=== PATIENT | female | born 1955 | race Caucasian/White ===

== ENCOUNTER 2021-11-05 06:50 | Emergency (ER) | payer MEDICARE, MEDICAID ==
[~2021-11-05] VITALS: Ht 160 cm; Wt 110.0 kg
[~2021-11-05 06:50] MED LIST: ALPR-623 PO; BACDS PO; IBUP-1984 PO; METH-603 PO
--- NOTE | 2021-11-05 07:12 | NUR ---
PT HAS POOR CIRCULATION TO BILAT HANDS WITH PURPLISH FINGERS. PT STATES THIS IS BASELINE FOR HER AND NOT RELATED TO REASON FOR VISIT. O2 SAT DONE ON EAR. PT HAS A HEALING WOUND TO LEFT LOWER LEG X 7 MONTHS PT GOING TO WOUND CARE, PT STATES NOT RELATED TO REASON FOR VISIT.
--- NOTE | 2021-11-05 07:30 | NUR ---
PT STATED SHE IS VACCINATED X 2 DOSES LAST TESTED FOR COVID X2 MONTHS AGO
[2021-11-05] MEDS ORDERED: ketorolac trometh. 30mg/ml inj. IM ONE (08:15)
[2021-11-05] MEDS ORDERED: oxymetazoline 15 ML nasal spray NS ONE (08:45)
[2021-11-05 10:32] VITALS: BP 92/55
[2021-11-05] MEDS ORDERED: FLUT16SP2 BOTHNARES (10:39)
== END 2021-11-05 12:28 | disposition home or self-care (01) ==
LOC: ER 06:50
DX: J32.9 Chronic sinusitis, unspecified (principal); Z20.822 Contact with and (suspected) exposure to COVID-19; F17.200 Nicotine dependence, unspecified, uncomplicated; F12.90 Cannabis use, unspecified, uncomplicated; F15.90 Other stimulant use, unspecified, uncomplicated; Z86.14 Personal history of Methicillin resistant Staphylococcus aureus infection; Z88.8 Allergy status to other drugs, medicaments and biological substances; Z79.899 Other long term (current) drug therapy
CPT/HCPCS: 87502; 87503; 87635; 96372; 99283; C9803; J1885

== ENCOUNTER 2021-11-07 23:53 | Emergency (ER) | payer MEDICARE, MEDICAID ==
[~2021-11-07] VITALS: Ht 157.5 cm; Wt 50.0 kg
[~2021-11-07 23:53] MED LIST changes: +FLUT16SP2 BOTHNARES
[2021-11-08 00:27] LABS: BASOPHILS % (AUTO) 0.1 % (0-1); EOSINOPHILS % (AUTO) 0 % (0-6); HEMATOCRIT 37.2 % (35.0-45.0); HEMOGLOBIN 12.7 g/dl (12.0-16.0); LYMPHOCYTES # (AUTO) 1.5 X10'3 (1.1-4.8); LYMPHOCYTES % (AUTO) 9.9 % (21-51); MEAN CORPUSCULAR HEMOGLOBIN 27.5 PG (27.0-31.0); MEAN CORPUSCULAR VOLUME 80.8 FL (78-98); MONOCYTES # (AUTO) 1.9 X10'3 (0-0.9); MONOCYTES % (AUTO) 12.9 % (2-12); NEUTROPHILS # (AUTO) 11.6 X10'3 (1.8-7.7); NEUTROPHILS % (AUTO) 77.1 % (42-75); PLATELET COUNT 372 X10'3 (140-440); RED CELL DISTRIBUTION WIDTH 15.2 % (11.5-14.5)
[2021-11-08 00:49] LABS: ALANINE AMINOTRANSFERASE 19 U/L (12-78); ALBUMIN/GLOBULIN RATIO 0.5 (1.1-1.5); ALKALINE PHOSPHATASE 102 IU/L (46-116); ANION GAP 12 (8-16); ASPARTATE AMINO TRANSFERASE 23 U/L (10-37); BILIRUBIN,TOTAL 0.4 MG/DL (0.1-1.0); BLOOD UREA NITROGEN 21 MG/DL (7-18); BUN/CREATININE RATIO 24.1 (6.6-38.0); CALCIUM 9.1 MG/DL (8.5-10.1); CHLORIDE 94 MMOL/L (99-107); CREATININE 0.87 MG/DL (0.40-0.90); POTASSIUM 3.9 MMOL/L (3.5-5.1); SODIUM 134 MMOL/L (135-145); TOTAL CARBON DIOXIDE 27.7 MMOL/L (24-32); TOTAL PROTEIN 9.1 G/DL (6.4-8.2); eGFR 66 ML/MIN
[2021-11-08 00:51] LABS: GLUCOSE 98 MG/DL (70-104)
[2021-11-08] MEDS ORDERED: LEVO500T90 PO (01:34)
[2021-11-08] MEDS ORDERED: levoFLOXACIN 250mg tablet PO ONE (01:35)
[2021-11-08 02:11] VITALS: BP 142/89
== END 2021-11-08 02:15 | disposition home or self-care (01) ==
LOC: ER 23:54
DX: L03.116 Cellulitis of left lower limb (principal); I83.028 Varicose veins of left lower extremity with ulcer other part of lower leg; L97.829 Non-pressure chronic ulcer of other part of left lower leg with unspecified severity; F41.9 Anxiety disorder, unspecified; F32.A Depression, unspecified; F12.90 Cannabis use, unspecified, uncomplicated; F15.90 Other stimulant use, unspecified, uncomplicated; Z86.14 Personal history of Methicillin resistant Staphylococcus aureus infection; Z98.890 Other specified postprocedural states; Z88.5 Allergy status to narcotic agent; Z79.2 Long term (current) use of antibiotics; Z79.899 Other long term (current) drug therapy
CPT/HCPCS: 36415; 80053; 85025; 93971; 99284

== ENCOUNTER 2022-04-27 17:50 | Emergency (ER) | payer MEDICARE, MEDICAID ==
[~2022-04-27] VITALS: Ht 157.5 cm; Wt 45.5 kg
[2022-04-27 18:23] VITALS: BP 112/78
== END 2022-04-28 02:47 | disposition left against medical advice (07) ==
LOC: ER 17:51
DX: R51.9 Headache, unspecified (principal); Z53.21 Procedure and treatment not carried out due to patient leaving prior to being seen by health care provider

== ENCOUNTER 2023-03-25 02:03 | Emergency (ER) | payer MEDICARE, MEDICAID ==
[~2023-03-25] VITALS: Ht 157.5 cm; Wt 48.8 kg
[2023-03-25] MEDS ORDERED: vancomycin inj 1,000 MG in normal saline 250ml IV soln 250 ML IV ONE (03:15)
[2023-03-25] MEDS ORDERED: piperacillin/tazo 4.5gm/100ml 100 ML IV ONE (03:15)
[2023-03-25] MEDS ORDERED: vancomycin/NS 1 GM ADD-VANTAGE 250 ML IV ONE (03:20)
[2023-03-25] MEDS ORDERED: HYDROcodone/acetaminophen 5mg/325mg tablet PO ONE (03:20)
--- NOTE | 2023-03-25 03:27 | NUR ---
PT TO CT
--- NOTE | 2023-03-25 04:02 | NUR ---
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 us tech on the way.
[2023-03-25] MEDS ORDERED: piperacillin/tazo 3.375gm/50ml 50 ML IV ONE (04:05)
[2023-03-25 04:26] LABS: ALANINE AMINOTRANSFERASE 29 U/L (12-78); ALBUMIN 2.6 G/DL (3.4-5.0); ALBUMIN/GLOBULIN RATIO 0.5 (1.1-1.5); ALKALINE PHOSPHATASE 141 IU/L (46-116); ANION GAP 8 (8-16); ASPARTATE AMINO TRANSFERASE 28 U/L (10-37); BILIRUBIN,TOTAL 0.5 MG/DL (0.1-1.0); BLOOD UREA NITROGEN 19 MG/DL (7-18); BUN/CREATININE RATIO 23.8 (10.0-20.0); CALCIUM 9.2 MG/DL (8.5-10.1); CHLORIDE 95 MMOL/L (99-107); GLUCOSE 104 MG/DL (70-104); POTASSIUM 3.2 MMOL/L (3.5-5.1); SODIUM 133 MMOL/L (135-145); TOTAL CARBON DIOXIDE 29.8 MMOL/L (24-32); TOTAL PROTEIN 7.4 G/DL (6.4-8.2); eCRCL 54 ML/MIN; eGFR 72 ML/MIN
[2023-03-25 04:42] LABS: BASOPHILS % (AUTO) 0.1 % (0-1); EOSINOPHILS % (AUTO) 0.1 % (0-6); HEMATOCRIT 40.9 % (35.0-45.0); HEMOGLOBIN 13.7 g/dl (12.0-16.0); LYMPHOCYTES % (AUTO) 9.1 % (21-51); MEAN CORPUSCULAR HEMOGLOBIN 28.1 PG (27.0-31.0); MEAN CORPUSCULAR HGB CONC 33.6 g/dL (33.0-36.5); MEAN CORPUSCULAR VOLUME 83.8 FL (78-98); MEAN PLATELET VOLUME 7.5 FL (7.4-10.4); MONOCYTES # (AUTO) 2.4 X10'3 (0-0.9); NEUTROPHILS # (AUTO) 17.4 X10'3 (1.8-7.7); NEUTROPHILS % (AUTO) 79.7 % (42-75); PLATELET COUNT 385 X10'3 (140-440); RED BLOOD COUNT 4.88 X10'6 (4.20-5.60); RED CELL DISTRIBUTION WIDTH 14.3 % (11.5-14.5); WHITE BLOOD COUNT 21.9 X10'3 (4.5-11.0)
[2023-03-25] MEDS ORDERED: SULF1TAB49 PO (05:12)
[2023-03-25] MEDS ORDERED: CEPH-585 PO (05:12)
[2023-03-25] MEDS ORDERED: IBUP-1984 PO (05:13)
[2023-03-25 06:03] VITALS: BP 114/75; PULSE 63; RESP 15; TEMP 98.1; O2SAT 100
[2023-03-25 06:17] LABS: PLATELET ESTIMATE NORMAL; TOTAL CELLS COUNTED 100
[2023-03-25 06:19] LABS: ELLIPTOCYTES 1+
== END 2023-03-25 06:06 | disposition home or self-care (01) ==
LOC: ER 02:03
DX: L03.115 Cellulitis of right lower limb (principal)
CPT/HCPCS: 73700; 80053; 85007; 85025; 93971; 96365; 96366; 96368; 99285; J2543; J3370

== ENCOUNTER 2023-04-02 16:52 | Inpatient (IN) | payer MEDICARE, MEDICAID ==
[~2023-04-02] VITALS: Ht 157.5 cm; Wt 53.0 kg
[~2023-04-02 16:52] MED LIST changes: +CEPH-585 PO; +SULF1TAB49 PO
[2023-04-02] MEDS ORDERED: piperacillin/tazo 4.5gm/100ml 100 ML IV STA (18:43)
[2023-04-02] MEDS ORDERED: vancomycin/NS 1 GM ADD-VANTAGE 250 ML IV ONE (18:50)
[2023-04-02 19:11] LABS: BASOPHILS % (AUTO) 0.4 % (0-1); EOSINOPHILS # (AUTO) 0.1 X10'3 (0-0.9); EOSINOPHILS % (AUTO) 0.6 % (0-6); HEMATOCRIT 42.4 % (35.0-45.0); HEMOGLOBIN 14.7 g/dl (12.0-16.0); LYMPHOCYTES # (AUTO) 1.2 X10'3 (1.1-4.8); LYMPHOCYTES % (AUTO) 13.4 % (21-51); MEAN CORPUSCULAR HEMOGLOBIN 29.4 PG (27.0-31.0); MEAN CORPUSCULAR HGB CONC 34.6 g/dL (33.0-36.5); MEAN CORPUSCULAR VOLUME 84.8 FL (78-98); MEAN PLATELET VOLUME 6.2 FL (7.4-10.4); MONOCYTES % (AUTO) 11.5 % (2-12); NEUTROPHILS # (AUTO) 6.4 X10'3 (1.8-7.7); NEUTROPHILS % (AUTO) 74.1 % (42-75); PLATELET COUNT 380 X10'3 (140-440); RED CELL DISTRIBUTION WIDTH 14.9 % (11.5-14.5); WHITE BLOOD COUNT 8.6 X10'3 (4.5-11.0)
[2023-04-02 19:22] LABS: ALANINE AMINOTRANSFERASE 25 U/L (12-78); ALBUMIN 2.8 G/DL (3.4-5.0); ALBUMIN/GLOBULIN RATIO 0.5 (1.1-1.5); ALKALINE PHOSPHATASE 135 IU/L (46-116); ANION GAP 5 (8-16); ASPARTATE AMINO TRANSFERASE 22 U/L (10-37); BILIRUBIN,TOTAL 0.4 MG/DL (0.1-1.0); BLOOD UREA NITROGEN 18 MG/DL (7-18); BUN/CREATININE RATIO 18.6 (10.0-20.0); CALCIUM 9.2 MG/DL (8.5-10.1); CHLORIDE 99 MMOL/L (99-107); CREATININE 0.97 MG/DL (0.40-0.90); GLUCOSE 90 MG/DL (70-104); POTASSIUM 4.3 MMOL/L (3.5-5.1); SODIUM 134 MMOL/L (135-145); TOTAL PROTEIN 8.5 G/DL (6.4-8.2); eCRCL 46 ML/MIN; eGFR 58 ML/MIN
[2023-04-02] MEDS ORDERED: ondansetron 4mg rapidly disintigrating tab PO PRN (20:10)
[2023-04-02] MEDS ORDERED: magnesium hydroxide 30ml (MOM) UD suspension PO PRN (20:10)
[2023-04-02] MEDS ORDERED: diphenhydrAMINE 50 mg/ml inj IV PRN (20:10)
[2023-04-02] MEDS ORDERED: normal saline 1000ml 1,000 ML IV SCH (20:10)
[2023-04-02] MEDS ORDERED: acetaminophen 325mg tablet PO PRN ×2 (20:10)
[2023-04-02] MEDS ORDERED: HYDROcodone/acetaminophen 5mg/325mg tablet PO PRN (20:10)
[2023-04-02] MEDS ORDERED: bisacodyl 10mg suppository rectal RC PRN (20:10)
[2023-04-02] MEDS ORDERED: mag hydrox/Alum hydrox/simeth 30ml oral suspension PO PRN (20:10)
[2023-04-02] MEDS ORDERED: diphenhydrAMINE 25mg capsule PO PRN (20:10)
[2023-04-02] MEDS ORDERED: HYDROcodone/acetaminophen 10/325mg tab PO PRN (20:10)
[2023-04-02] MEDS ORDERED: acetaminophen 650mg rectal suppository RC PRN (20:10)
[2023-04-02] MEDS ORDERED: ondansetron/PF 4mg/2ml inj IV PRN (20:10)
[2023-04-02 20:37] LABS: APTT 32 SECONDS (22-32)
[2023-04-02 20:42] LABS: INR 0.9 INR
[2023-04-02 20:44] LABS: C-REACTIVE PROTEIN 6.15 MG/DL (0.0-0.5); CREATINE KINASE 42 U/L (26-192); PHOSPHORUS 3.6 MG/DL (2.3-4.5); PRO BRAIN NATRIURETIC PEPTIDE 556 PG/ML (0-125); THYROID STIMULATING HORMONE 2.07 ulU/ml (0.34-4.50)
[2023-04-02] MEDS ORDERED: temazepam 15mg capsule PO PRN (21:00)
[2023-04-02] MEDS: morphine 2 MG/ML inj. syringe IV PRN (21:03)
[2023-04-02] MEDS ORDERED: iohexol 300mg/ml 100ml inj. ONE (21:15)
[2023-04-03] MEDS: morphine 2 MG/ML inj. syringe IV PRN (01:24)
[2023-04-03 01:25] LABS: BILIRUBIN,URINE NEGATIVE (Neg); CLARITY,URINE CLEAR (Clear); COLOR,URINE YELLOW (Yellow); GLUCOSE, URINE NEGATIVE (Neg); KETONES,URINE NEGATIVE (Neg); LEUKOCYTE ESTERASE ,URINE NEGATIVE (Neg); NITRITES, URINE NEGATIVE (Neg); OCCULT BLOOD,URINE NEGATIVE (Neg); PROTEIN,URINE NEGATIVE (Neg)
[2023-04-03 01:30] LABS: UA COLLECTION TYPE NON-SPECIFIED
[2023-04-03 02:31] LABS: URINE AMPHETAMINE SCREEN POSITIVE (Neg); URINE BARBITUATE SCREEN NEGATIVE (Neg); URINE BENZODIAZEPINES SCREEN POSITIVE (Neg); URINE CANNABINOID SCREEN NEGATIVE (Neg); URINE COCAINE SCREEN NEGATIVE (Neg); URINE METHADONE SCREEN NEGATIVE (Neg); URINE OPIATE SCREEN POSITIVE (Neg); URINE PHENCYCLIDINE SCREEN NEGATIVE (Neg)
[2023-04-03 03:20] LABS: BASOPHILS % (AUTO) 0.3 % (0-1); EOSINOPHILS # (AUTO) 0.1 X10'3 (0-0.9); EOSINOPHILS % (AUTO) 0.8 % (0-6); HEMATOCRIT 33.7 % (35.0-45.0); HEMOGLOBIN 11.4 g/dl (12.0-16.0); LYMPHOCYTES # (AUTO) 1.5 X10'3 (1.1-4.8); MEAN CORPUSCULAR HEMOGLOBIN 28.8 PG (27.0-31.0); MEAN CORPUSCULAR HGB CONC 33.6 g/dL (33.0-36.5); MEAN CORPUSCULAR VOLUME 85.6 FL (78-98); MEAN PLATELET VOLUME 6.5 FL (7.4-10.4); MONOCYTES % (AUTO) 14.3 % (2-12); NEUTROPHILS # (AUTO) 4.7 X10'3 (1.8-7.7); NEUTROPHILS % (AUTO) 64.6 % (42-75); PLATELET COUNT 341 X10'3 (140-440); RED BLOOD COUNT 3.94 X10'6 (4.20-5.60); WHITE BLOOD COUNT 7.3 X10'3 (4.5-11.0)
[2023-04-03 03:36] LABS: ALANINE AMINOTRANSFERASE 18 U/L (12-78); ALBUMIN/GLOBULIN RATIO 0.5 (1.1-1.5); ALKALINE PHOSPHATASE 90 IU/L (46-116); ANION GAP 7 (8-16); ASPARTATE AMINO TRANSFERASE 25 U/L (10-37); BILIRUBIN,TOTAL 0.5 MG/DL (0.1-1.0); BLOOD UREA NITROGEN 14 MG/DL (7-18); BUN/CREATININE RATIO 15.4 (10.0-20.0); CALCIUM 8.1 MG/DL (8.5-10.1); CHLORIDE 102 MMOL/L (99-107); CREATININE 0.91 MG/DL (0.40-0.90); GLUCOSE 112 MG/DL (70-104); POTASSIUM 4.1 MMOL/L (3.5-5.1); SODIUM 135 MMOL/L (135-145); TOTAL CARBON DIOXIDE 26.4 MMOL/L (24-32); TOTAL PROTEIN 6.1 G/DL (6.4-8.2); eCRCL 49 ML/MIN; eGFR 62 ML/MIN
--- NOTE | 2023-04-03 07:29 | NUR ---
Dr. Mcarthur paged regarding to AMA.
[2023-04-03] MEDS ORDERED: pantoprazole 40mg Tablet.DR PO SCH (07:30)
[2023-04-03] MEDS ORDERED: docusate sod 100mg capsule PO SCH (08:00)
[2023-04-03] MEDS ORDERED: nicotine 21mg patch - 24 hr TD SCH (08:00)
[2023-04-03] MEDS ORDERED: piperacillin/tazo 4.5gm/100ml 100 ML IV SCH (08:00)
[2023-04-03] MEDS ORDERED: heparin, porcine 5000 units/ml vial SQ SCH (08:00)
[2023-04-03 08:04] VITALS: BP 112/73; PULSE 69; RESP 14; TEMP 97.2; O2SAT 95
[2023-04-03] MEDS ORDERED: vancomycin/NS 1 GM ADD-VANTAGE 250 ML IV SCH (20:00)
== END 2023-04-03 10:00 | disposition left against medical advice (07) | DRG 603 ==
LOC: ER 16:53 → UNDOADMOB 20:14 → ED HOLD 20:14
PROVIDERS: ADMIT Family Medicine; ATTEND Internal Medicine
DX: L03.115 Cellulitis of right lower limb (principal); E87.1 Hypo-osmolality and hyponatremia; N17.9 Acute kidney failure, unspecified; E44.1 Mild protein-calorie malnutrition; L30.9 Dermatitis, unspecified; F15.129 Other stimulant abuse with intoxication, unspecified; F11.10 Opioid abuse, uncomplicated; E88.09 Other disorders of plasma-protein metabolism, not elsewhere classified; Z53.29 Procedure and treatment not carried out because of patient's decision for other reasons; N18.9 Chronic kidney disease, unspecified; K59.09 Other constipation; J44.9 Chronic obstructive pulmonary disease, unspecified; Z72.0 Tobacco use; Z88.5 Allergy status to narcotic agent; Z71.6 Tobacco abuse counseling; Z71.51 Drug abuse counseling and surveillance of drug abuser; Z68.21 Body mass index [BMI] 21.0-21.9, adult
CPT/HCPCS: 36415; 71045; 73590; 73701; 80053; 80305; 81003; 82550; 83605; 83735; 83880; 84100; 84443; 85025; 85610; 85651; 85730; 86140; 87040; 99285; G0378; J2270; J2543; J3370; J3490; J7030; Q9967